=== PATIENT | male | born 1955 | race Caucasian/White ===

== ENCOUNTER 2021-03-09 21:00 | Inpatient (IN) | payer MEDICARE ==
[2021-03-09 23:24] LABS: #Basophils 0.1 10x3/uL (0.0-0.2); #Eosinphils 0.4 10x3/uL (0.0-0.5); #Monocytes 0.6 10x3/uL (0.0-1.1); #Neutrophils 6.7 10x3/uL (1.5-8.4); %Eosinophils 4.2 % (0.0-6.0); %Monocytes 6.7 % (0.0-10.0); %Neutrophils 73.7 % (40.0-75.0); ALT (SGPT) 59 U/L (8-55); AST (SGOT) 38 U/L (5-34); Albumin 3.3 g/dL (3.4-4.8); Alkaline Phosphatase 65 U/L (40-110); Anion Gap 17 mmol/L (10-20); BUN (Urea Nitrogen) 17 mg/dL (8.4-25.7); Bilirubin, Total 0.3 mg/dL (0.2-1.2); Calc. Creatinine Clearance 0 mL/min (70-130); Calcium 8.9 mg/dL (7.8-10.44); Carbon Dioxide 23 mmol/L (23-31); Chloride 99 mmol/L (98-107); Globulin 4.3 g/dL (2.4-3.5); Glucose 120 mg/dL (80-115); Hemoglobin 8.6 g/dL (13.5-17.5); Mean Corpuscular HGB CONC 31.5 g/dL (32.0-36.0); Mean Corpuscular Hemoglobin 26.8 pg (27.0-33.0); Mean Platelet Volume 8.3 fl (7.4-10.4); Platelet Count 525 10x3/uL (150-450); Potassium 3.8 mmol/L (3.5-5.1); Protein, Total 7.6 g/dL (5.8-8.1); RBC Distribution Width 15.6 % (11.5-14.5); Red Blood Cell (RBC) Count 3.21 10x6/uL (4.32-5.72); Sodium 135 mmol/L (136-145); White Blood Cell (WBC) Count 9.4 10x3/uL (3.5-10.5)
[2021-03-09 23:32] LABS: INR-International Normal Ratio 1.2; PTT 29.5 sec (22.0-33.0); Prothrombin Time 13.4 sec (9.5-12.1)
[2021-03-09 23:41] LABS: Bilirubin Neg (Negative); Blood, Urine 50 (Negative); Clarity Slightly Cloudy (Clear); Glucose, Urine (Dipstick) Normal (Negative); Ketone, Urine Negative (Negative); Leukocyte 25 (Negative); Nitrite Negative (Negative); Protein, Urine (Dipstick) 30 mg/dl (Neg-Trace); Specific Gravity, Urine 1.015 (1.002-1.036); Urobilinogen Normal mg/dL (Less than 2)
[2021-03-09 23:51] LABS: Bacteria/HPF Rare-Few HPF (None Seen); Mucous/LPF None Seen LPF (<2+); RBC/HPF 0-3 HPF (0-3); Squamous Epithelial 0-3 HPF (0-3); WBC/HPF 0-3 HPF (0-3)
[2021-03-09] MEDS ORDERED: Aspirin Chewable 81 MG TAB ONE (23:59)
[2021-03-10 03:31] VITALS: BMI 36.1
[2021-03-10] MEDS: Acetaminophen 325 MG TAB PO PRN ×3 (03:41→23:56)
[2021-03-10 04:21] LABS: #Basophils 0.1 10x3/uL (0.0-0.2); #Eosinphils 0.3 10x3/uL (0.0-0.5); #Monocytes 0.6 10x3/uL (0.0-1.1); #Neutrophils 5.7 10x3/uL (1.5-8.4); %Eosinophils 4.1 % (0.0-6.0); %Lymphocytes 15.7 % (18.0-47.0); %Monocytes 7.9 % (0.0-10.0); %Neutrophils 70.7 % (40.0-75.0); Hemoglobin 8.3 g/dL (13.5-17.5); Mean Corpuscular HGB CONC 31.1 g/dL (32.0-36.0); Mean Corpuscular Hemoglobin 26.3 pg (27.0-33.0); Mean Corpuscular Volume 84.5 fl (81.2-95.1); Mean Platelet Volume 8.3 fl (7.4-10.4); Platelet Count 469 10x3/uL (150-450); RBC Distribution Width 15.5 % (11.5-14.5); Red Blood Cell (RBC) Count 3.16 10x6/uL (4.32-5.72); White Blood Cell (WBC) Count 8.1 10x3/uL (3.5-10.5)
[2021-03-10 04:28] LABS: Anion Gap 17 mmol/L (10-20); BUN (Urea Nitrogen) 16 mg/dL (8.4-25.7); Calc. Creatinine Clearance 89 mL/min (70-130); Calcium 8.8 mg/dL (7.8-10.44); Carbon Dioxide 23 mmol/L (23-31); Cardiac Risk 3.9 (Less than 4.5); Chloride 101 mmol/L (98-107); Cholesterol 128 mg/dl (< 200 Desired); Glucose 117 mg/dL (80-115); HDL Cholesterol 33 mg/dL (>60 Neg Risk); LDL Cholesterol, Calculated 74 mg/dL; Magnesium 1.4 mg/dL (1.6-2.6); Potassium 3.6 mmol/L (3.5-5.1); Sodium 137 mmol/L (136-145); Triglycerides 103 mg/dL (Less than 150)
[2021-03-10] MEDS ORDERED: HumaLOG 300 UNITS/3 ML VIAL SC PRN ×2 (10:53)
[2021-03-10] MEDS ORDERED: Dextrose 5% in Water 1,000 ML IV PRN (10:53)
[2021-03-10] MEDS ORDERED: Dextrose 50% Abboject 50 ML SYRINGE SLOW IVP PRN (10:53)
[2021-03-10] MEDS: Polyethylene Glycol 3350 17 GM Packet PO SCH (11:05)
[2021-03-10] MEDS: Atorvastatin Calcium 40 MG TAB PO SCH (11:06)
[2021-03-10] MEDS: Metoprolol Tartrate 50 MG TAB PO SCH ×2 (11:06→23:57)
[2021-03-10] MEDS: Clopidogrel Bisulfate 75 MG TAB PO SCH (11:06)
[2021-03-10] MEDS: Aspirin 81 mg Enteric Coated Tablet PO SCH (11:06)
[2021-03-10] MEDS: Ferrous Sulfate 325 MG TAB PO SCH ×2 (11:06→14:21)
[2021-03-10] MEDS: Folic Acid 1 MG TAB PO SCH (11:06)
[2021-03-10] MEDS: metFORMIN 500 MG TAB PO SCH ×2 (11:06→23:59)
[2021-03-10] MEDS: Sulfameth/Trimethoprim DS 800-160mg TAB PO SCH ×2 (11:07→23:59)
[2021-03-10] MEDS: Sucralfate 1 GM TAB PO SCH ×4 (11:07→23:59)
[2021-03-10] MEDS: Amiodarone 200 MG TAB PO SCH (11:07)
[2021-03-10] MEDS: Docusate 100 MG CAP PO SCH ×2 (11:07→23:59)
[2021-03-10] MEDS: Enoxaparin Sodium 40 MG/0.4 ML SYRINGE SC SCH (11:07)
[2021-03-10] MEDS ORDERED: Potassium Chloride 20 MEQ TAB PO SCH (16:00)
[2021-03-10] MEDS ORDERED: Magnesium 2 GM/50 ML 2 GM in Premix Bag 1 BAG IVPB SCH (16:00)
[2021-03-11 10:00] LABS: #Basophils 0.1 10x3/uL (0.0-0.2); #Eosinphils 0.3 10x3/uL (0.0-0.5); #Monocytes 0.5 10x3/uL (0.0-1.1); %Basophils 0.7 % (0.0-2.0); %Eosinophils 3.6 % (0.0-6.0); %Lymphocytes 14.1 % (18.0-47.0); %Monocytes 6.6 % (0.0-10.0); %Neutrophils 74.5 % (40.0-75.0); Mean Corpuscular HGB CONC 31.7 g/dL (32.0-36.0); Mean Corpuscular Hemoglobin 26.8 pg (27.0-33.0); Mean Corpuscular Volume 84.3 fl (81.2-95.1); Mean Platelet Volume 8.3 fl (7.4-10.4); Platelet Count 353 10x3/uL (150-450); RBC Distribution Width 15.6 % (11.5-14.5); Red Blood Cell (RBC) Count 2.99 10x6/uL (4.32-5.72)
[2021-03-11] MEDS: Atorvastatin Calcium 40 MG TAB PO SCH (10:01)
[2021-03-11] MEDS: Folic Acid 1 MG TAB PO SCH (10:01)
[2021-03-11] MEDS: Metoprolol Tartrate 50 MG TAB PO SCH ×2 (10:01→20:35)
[2021-03-11] MEDS: metFORMIN 500 MG TAB PO SCH ×2 (10:01→20:35)
[2021-03-11] MEDS: Aspirin 81 mg Enteric Coated Tablet PO SCH (10:01)
[2021-03-11] MEDS: Docusate 100 MG CAP PO SCH ×2 (10:01→20:34)
[2021-03-11] MEDS: Polyethylene Glycol 3350 17 GM Packet PO SCH (10:01)
[2021-03-11] MEDS: Ferrous Sulfate 325 MG TAB PO SCH ×4 (10:02→20:35)
[2021-03-11] MEDS: Amiodarone 200 MG TAB PO SCH ×3 (10:02→20:34)
[2021-03-11] MEDS: Enoxaparin Sodium 40 MG/0.4 ML SYRINGE SC SCH (10:02)
[2021-03-11] MEDS: Sucralfate 1 GM TAB PO SCH ×4 (10:02→20:35)
[2021-03-11] MEDS: Sulfameth/Trimethoprim DS 800-160mg TAB PO SCH ×2 (10:02→20:34)
[2021-03-11] MEDS: Clopidogrel Bisulfate 75 MG TAB PO SCH (10:07)
[2021-03-11 10:13] LABS: Anion Gap 16 mmol/L (10-20); BUN (Urea Nitrogen) 16 mg/dL (8.4-25.7); Calc. Creatinine Clearance 91 mL/min (70-130); Calcium 8.5 mg/dL (7.8-10.44); Carbon Dioxide 22 mmol/L (23-31); Chloride 102 mmol/L (98-107); Glucose 119 mg/dL (80-115); Magnesium 1.9 mg/dL (1.6-2.6); Potassium 4.1 mmol/L (3.5-5.1); Sodium 136 mmol/L (136-145)
[2021-03-11 14:25] LABS: SARS-CoV-2 PCR by NAA Not Detected (NotDetected)
[2021-03-11] MEDS: Tamsulosin HCl 0.4 MG CAP PO SCH ×2 (20:35)
[2021-03-12] MEDS: Acetaminophen 325 MG TAB PO PRN ×3 (04:07→21:11)
[2021-03-12 04:33] LABS: #Basophils 0.1 10x3/uL (0.0-0.2); #Eosinphils 0.3 10x3/uL (0.0-0.5); #Monocytes 0.6 10x3/uL (0.0-1.1); #Neutrophils 5.9 10x3/uL (1.5-8.4); %Basophils 0.7 % (0.0-2.0); %Eosinophils 3.6 % (0.0-6.0); %Lymphocytes 15.8 % (18.0-47.0); %Monocytes 7.2 % (0.0-10.0); %Neutrophils 72.2 % (40.0-75.0); Hemoglobin 7.9 g/dL (13.5-17.5); Mean Corpuscular HGB CONC 31.9 g/dL (32.0-36.0); Mean Corpuscular Hemoglobin 27.1 pg (27.0-33.0); Mean Corpuscular Volume 84.9 fl (81.2-95.1); Mean Platelet Volume 8.5 fl (7.4-10.4); Platelet Count 361 10x3/uL (150-450); RBC Distribution Width 15.7 % (11.5-14.5); Red Blood Cell (RBC) Count 2.92 10x6/uL (4.32-5.72); White Blood Cell (WBC) Count 8.2 10x3/uL (3.5-10.5)
[2021-03-12 04:53] LABS: ALT (SGPT) 30 U/L (8-55); AST (SGOT) 22 U/L (5-34); Albumin 3.1 g/dL (3.4-4.8); Alkaline Phosphatase 60 U/L (40-110); Anion Gap 16 mmol/L (10-20); BUN (Urea Nitrogen) 19 mg/dL (8.4-25.7); Bilirubin, Total 0.4 mg/dL (0.2-1.2); Calc. Creatinine Clearance 82 mL/min (70-130); Calcium 8.5 mg/dL (7.8-10.44); Carbon Dioxide 21 mmol/L (23-31); Chloride 101 mmol/L (98-107); Globulin 4.2 g/dL (2.4-3.5); Glucose 124 mg/dL (80-115); Magnesium 1.7 mg/dL (1.6-2.6); Potassium 4.2 mmol/L (3.5-5.1); Protein, Total 7.3 g/dL (5.8-8.1); Sodium 134 mmol/L (136-145)
[2021-03-12] MEDS ORDERED: Sodium Chloride 0.9% 500 ML IV SCH (07:15)
[2021-03-12] MEDS: Ferrous Sulfate 325 MG TAB PO SCH ×3 (08:30→21:09)
[2021-03-12] MEDS: Sulfameth/Trimethoprim DS 800-160mg TAB PO SCH ×2 (08:30→21:11)
[2021-03-12] MEDS: metFORMIN 500 MG TAB PO SCH ×2 (08:30→21:10)
[2021-03-12] MEDS: Metoprolol Tartrate 50 MG TAB PO SCH ×2 (08:31→21:10)
[2021-03-12] MEDS: Folic Acid 1 MG TAB PO SCH (08:31)
[2021-03-12] MEDS: Sucralfate 1 GM TAB PO SCH ×4 (08:31→21:10)
[2021-03-12] MEDS: Atorvastatin Calcium 40 MG TAB PO SCH (08:32)
[2021-03-12] MEDS: Docusate 100 MG CAP PO SCH ×2 (08:32→21:08)
[2021-03-12] MEDS: Clopidogrel Bisulfate 75 MG TAB PO SCH (08:32)
[2021-03-12] MEDS: Polyethylene Glycol 3350 17 GM Packet PO SCH (08:32)
[2021-03-12] MEDS: Amiodarone 200 MG TAB PO SCH ×2 (08:32→21:10)
[2021-03-12] MEDS: Tamsulosin HCl 0.4 MG CAP PO SCH (21:09)
[2021-03-13] MEDS: Acetaminophen 325 MG TAB PO PRN ×2 (04:26→20:46)
[2021-03-13 06:21] LABS: #Basophils 0.1 10x3/uL (0.0-0.2); #Eosinphils 0.3 10x3/uL (0.0-0.5); #Monocytes 0.5 10x3/uL (0.0-1.1); #Neutrophils 5.2 10x3/uL (1.5-8.4); %Eosinophils 4.5 % (0.0-6.0); %Lymphocytes 15.6 % (18.0-47.0); %Monocytes 7.3 % (0.0-10.0); %Neutrophils 70.9 % (40.0-75.0); Hemoglobin 8.1 g/dL (13.5-17.5); Mean Corpuscular HGB CONC 32.5 g/dL (32.0-36.0); Mean Corpuscular Hemoglobin 26.6 pg (27.0-33.0); Mean Corpuscular Volume 81.9 fl (81.2-95.1); Mean Platelet Volume 8.6 fl (7.4-10.4); Platelet Count 323 10x3/uL (150-450); RBC Distribution Width 15.9 % (11.5-14.5); Red Blood Cell (RBC) Count 3.04 10x6/uL (4.32-5.72); White Blood Cell (WBC) Count 7.3 10x3/uL (3.5-10.5)
[2021-03-13 06:44] LABS: ALT (SGPT) 24 U/L (8-55); AST (SGOT) 18 U/L (5-34); Albumin 3.1 g/dL (3.4-4.8); Alkaline Phosphatase 57 U/L (40-110); Anion Gap 16 mmol/L (10-20); BUN (Urea Nitrogen) 20 mg/dL (8.4-25.7); Bilirubin, Total 0.3 mg/dL (0.2-1.2); Calc. Creatinine Clearance 72 mL/min (70-130); Calcium 8.6 mg/dL (7.8-10.44); Carbon Dioxide 19 mmol/L (23-31); Chloride 104 mmol/L (98-107); Globulin 3.9 g/dL (2.4-3.5); Glucose 125 mg/dL (80-115); Magnesium 1.7 mg/dL (1.6-2.6); Phosphorus 3.3 mg/dL (2.3-4.7); Potassium 4.3 mmol/L (3.5-5.1); Sodium 135 mmol/L (136-145)
[2021-03-13] MEDS ORDERED: Sodium Chloride 0.9% 1,000 ML IV SCH (09:30)
[2021-03-13] MEDS: metFORMIN 500 MG TAB PO SCH ×2 (10:22→20:46)
[2021-03-13] MEDS: Ferrous Sulfate 325 MG TAB PO SCH ×3 (10:22→20:45)
[2021-03-13] MEDS: Metoprolol Tartrate 50 MG TAB PO SCH ×2 (10:22→20:47)
[2021-03-13] MEDS: Polyethylene Glycol 3350 17 GM Packet PO SCH (10:23)
[2021-03-13] MEDS: Atorvastatin Calcium 40 MG TAB PO SCH (10:23)
[2021-03-13] MEDS: Amiodarone 200 MG TAB PO SCH ×2 (10:23→20:47)
[2021-03-13] MEDS: Sucralfate 1 GM TAB PO SCH ×4 (10:23→20:44)
[2021-03-13] MEDS: Docusate 100 MG CAP PO SCH ×2 (10:23→20:48)
[2021-03-13] MEDS: Folic Acid 1 MG TAB PO SCH (10:32)
[2021-03-13] MEDS: Sodium Chloride 0.9% 1,000 ML IV SCH ×2 (11:59→17:12)
[2021-03-13] MEDS: Clopidogrel Bisulfate 75 MG TAB PO SCH (12:06)
[2021-03-13] MEDS ORDERED: Melatonin 3 MG TAB PO PRN (20:04)
[2021-03-13] MEDS: Tamsulosin HCl 0.4 MG CAP PO SCH (20:44)
[2021-03-13] MEDS: Ciprofloxacin 500 MG TAB PO SCH (21:23)
[2021-03-14] MEDS: Acetaminophen 325 MG TAB PO PRN (02:43)
[2021-03-14 05:05] LABS: ALT (SGPT) 21 U/L (8-55); AST (SGOT) 16 U/L (5-34); Albumin 3.1 g/dL (3.4-4.8); Alkaline Phosphatase 59 U/L (40-110); Anion Gap 16 mmol/L (10-20); BUN (Urea Nitrogen) 15 mg/dL (8.4-25.7); Bilirubin, Total 0.4 mg/dL (0.2-1.2); Calc. Creatinine Clearance 78 mL/min (70-130); Calcium 8.7 mg/dL (7.8-10.44); Carbon Dioxide 20 mmol/L (23-31); Chloride 104 mmol/L (98-107); Globulin 3.9 g/dL (2.4-3.5); Glucose 123 mg/dL (80-115); Magnesium 1.6 mg/dL (1.6-2.6); Phosphorus 3.1 mg/dL (2.3-4.7); Sodium 136 mmol/L (136-145)
[2021-03-14 05:09] LABS: #Basophils 0.1 10x3/uL (0.0-0.2); #Eosinphils 0.3 10x3/uL (0.0-0.5); #Monocytes 0.6 10x3/uL (0.0-1.1); #Neutrophils 5.6 10x3/uL (1.5-8.4); %Basophils 0.8 % (0.0-2.0); %Eosinophils 4.4 % (0.0-6.0); %Lymphocytes 14.1 % (18.0-47.0); %Monocytes 7.3 % (0.0-10.0); Mean Corpuscular HGB CONC 31.3 g/dL (32.0-36.0); Mean Corpuscular Hemoglobin 26.6 pg (27.0-33.0); Mean Platelet Volume 8.8 fl (7.4-10.4); Platelet Count 350 10x3/uL (150-450); RBC Distribution Width 15.9 % (11.5-14.5); Red Blood Cell (RBC) Count 3.01 10x6/uL (4.32-5.72); White Blood Cell (WBC) Count 7.7 10x3/uL (3.5-10.5)
[2021-03-14] MEDS: Ciprofloxacin 500 MG TAB PO SCH (05:52)
[2021-03-14] MEDS: metFORMIN 500 MG TAB PO SCH (09:32)
[2021-03-14] MEDS: Ferrous Sulfate 325 MG TAB PO SCH (09:32)
[2021-03-14] MEDS: Atorvastatin Calcium 40 MG TAB PO SCH (09:33)
[2021-03-14] MEDS: Amiodarone 200 MG TAB PO SCH (09:33)
[2021-03-14] MEDS: Metoprolol Tartrate 50 MG TAB PO SCH (09:33)
[2021-03-14] MEDS: Sucralfate 1 GM TAB PO SCH ×2 (09:33→12:39)
[2021-03-14] MEDS: Polyethylene Glycol 3350 17 GM Packet PO SCH (09:39)
[2021-03-14] MEDS: Docusate 100 MG CAP PO SCH (09:39)
[2021-03-14] MEDS: Folic Acid 1 MG TAB PO SCH (09:39)
[2021-03-14] MEDS: Clopidogrel Bisulfate 75 MG TAB PO SCH (09:39)
[2021-03-14 12:10] VITALS: TEMP 97.1
[2021-03-14 13:59] VITALS: BP 113/70
== END 2021-03-14 13:42 | DRG 74 ==
LOC: CSHERS 21:00 → CSHTELE 03-10 02:56 → UNDOADMIN 03-10 02:56 → CSHTELE 03-11 18:11
PROVIDERS: ADMIT Family Medicine; ATTEND Family Medicine
DX: E11.41 Type 2 diabetes mellitus with diabetic mononeuropathy (principal); N17.9 Acute kidney failure, unspecified; N39.0 Urinary tract infection, site not specified; G80.8 Other cerebral palsy; Z20.822 Contact with and (suspected) exposure to COVID-19; I25.10 Atherosclerotic heart disease of native coronary artery without angina pectoris; I48.0 Paroxysmal atrial fibrillation; D64.9 Anemia, unspecified; E78.5 Hyperlipidemia, unspecified; E11.51 Type 2 diabetes mellitus with diabetic peripheral angiopathy without gangrene; N39.43 Post-void dribbling; H49.12 Fourth [trochlear] nerve palsy, left eye; E86.0 Dehydration; Z96.653 Presence of artificial knee joint, bilateral; Z95.1 Presence of aortocoronary bypass graft; Z95.2 Presence of prosthetic heart valve; Z79.01 Long term (current) use of anticoagulants; Z87.19 Personal history of other diseases of the digestive system; Z88.5 Allergy status to narcotic agent; Z91.018 Allergy to other foods; Z79.84 Long term (current) use of oral hypoglycemic drugs; Z79.82 Long term (current) use of aspirin; Z79.02 Long term (current) use of antithrombotics/antiplatelets; Z79.899 Other long term (current) drug therapy
CPT/HCPCS: 36415; 36416; 51701; 70450; 71045; 76770; 80048; 80053; 80061; 81003; 81015; 83735; 84100; 84484; 85025; 85610; 85730; 93005; 93010; 93306; 93880; J1650; J3475; J7030; J7050; U0003; U0005

== ENCOUNTER 2021-06-18 15:21 | Outpatient (CLI) | payer MEDICARE ==
[2021-06-19 03:09] LABS: SARS-CoV-2 PCR by NAA Not Detected (NotDetected)
== END 2021-06-18 15:22 | disposition home or self-care (01) ==
LOC: CSHLAB 15:21
PROVIDERS: ATTEND Internal Medicine Gastroenterology
DX: Z20.822 Contact with and (suspected) exposure to COVID-19 (principal); R11.2 Nausea with vomiting, unspecified; R13.10 Dysphagia, unspecified; R10.9 Unspecified abdominal pain; R63.4 Abnormal weight loss
CPT/HCPCS: U0003; U0005

== ENCOUNTER 2021-06-29 14:04 | Outpatient (CLI) | payer MEDICARE ==
[2021-06-30 00:07] LABS: SARS-CoV-2 PCR by NAA Not Detected (NotDetected)
== END 2021-06-29 14:05 | disposition home or self-care (01) ==
LOC: CSHLAB 14:04
PROVIDERS: ATTEND Internal Medicine Gastroenterology
DX: Z20.822 Contact with and (suspected) exposure to COVID-19 (principal); R11.2 Nausea with vomiting, unspecified; R13.10 Dysphagia, unspecified; R10.9 Unspecified abdominal pain; R63.4 Abnormal weight loss
CPT/HCPCS: U0003; U0005

== ENCOUNTER 2021-07-02 10:10 | Day surgery (SDC) | payer MEDICARE ==
[2021-06-19 10:06] VITALS: BMI 31.9
[2021-07-02] MEDS ORDERED: Lidocaine 1% MPF 2 ML VIAL ONE (10:43)
[2021-07-02] MEDS ORDERED: PROPOFOL 20 ML ONE ×2 (12:17)
[2021-07-02] MEDS ORDERED: Lidocaine Viscous Sol 2% 15 ml UD Cup ONE (12:20)
[2021-07-02] MEDS ORDERED: Phenylephrine 10 MG/ML VIAL ONE (12:47)
== END 2021-07-02 13:38 | disposition home or self-care (01) ==
LOC: CSHSDC 10:10
PROVIDERS: ATTEND Internal Medicine Gastroenterology
PROC: 0D758ZZ Dilation of Esophagus, Via Natural or Artificial Opening Endoscopic (ICD-10-PCS; principal; 2021-07-02)
DX: K22.10 Ulcer of esophagus without bleeding (principal); R13.10 Dysphagia, unspecified; K44.9 Diaphragmatic hernia without obstruction or gangrene; R11.2 Nausea with vomiting, unspecified; R10.9 Unspecified abdominal pain; R63.4 Abnormal weight loss
CPT/HCPCS: J2370; J2704